=== PATIENT | female | born 1945 | race Caucasian/White ===

== ENCOUNTER 2020-04-15 | Observation (INO) | payer OTHER | END 2020-04-17 12:15 | disposition home or self-care (01) | PROVIDERS: ADMIT Internal Medicine Pulmonary Disease ==

== ENCOUNTER → 2022-10-19 | Outpatient (CLI) | payer OTHER ==
[~2022-10-19] MED LIST: ASPI-1005 PO; ATOR40TA69 PO; CARV25TA PO; CEFI400C PO; EMPA25TA PO; LEVO50TA11 PO; LISI20TA24 PO; METF-444 PO; TRAM50TA4 PO
== END | disposition home or self-care (01) ==
LOC: RAH 08:11
PROVIDERS: ATTEND Internal Medicine
DX: I63.9 Cerebral infarction, unspecified (principal); G31.89 Other specified degenerative diseases of nervous system
CPT/HCPCS: 70551